=== PATIENT | male | born 1960 | race Caucasian/White ===

== ENCOUNTER → 2025-03-25 13:19 | Outpatient (REF) | payer OTHER, SELFPAY | LOC: EMG 13:19 | PROVIDERS: ATTENDING PHYSICIAN Student in an Organized Health Care Education/Training Program; FAMILY PHYSICIAN Family Medicine | DX: M54.12 Radiculopathy, cervical region (principal); R20.2 Paresthesia of skin; R20.0 Anesthesia of skin | CPT/HCPCS: 95886; 95910 ==